=== PATIENT | female | born 1970 | race African-American/Black ===

== ENCOUNTER 2020-04-22 18:46 | Emergency (ER) | payer BC, OTHER, SELFPAY ==
--- NOTE | ~2020-04-22 | XR_ITS ---
EXAMINATION: XR knee RT 3V DATE: 04/22/2020 21:43 INDICATION: Right knee pain TECHNIQUE: Three views of the right knee were obtained. COMPARISON: None. FINDINGS: Alignment is normal. No fracture or osteochondral lesion. There is mild tricompartmental os teoarthritis characterized by tiny marginal osteophytes. There is a large knee joint effusion. Soft t issues are unremarkable. IMPRESSION: 1. Large knee joint effusion without acute osseous abnormality. Reviewed, dictated and finalized at location A. OR GREETING CARD
[2020-04-22 18:48] VITALS: BP 143/78; PULSE 94; RESP 18; TEMP 36.6; O2SAT 98
[2020-04-22 20:39] VITALS: BP 116/70; PULSE 91; RESP 13; TEMP 36.8; O2SAT 100
--- NOTE | 2020-04-22 21:37 | ED.GENADULT ---
HPI - General Adult General Chief complaint: Extremity Injury, Lower Stated complaint: Right knee pain and swelling Time Seen by Provider: 04/22/20 21:31 Source: patient History of Present Illness HPI narrative: Patient is a 49 y/o female complaining of right knee since she fell 2 weeks ago. She describes her pain as aching and rates it as 6/10. She took Aleve and applied ice, but they did not help. She has some knee swelling and some numbness behind her right leg. She states that she was seen at urgent care 1 week ago, had xray which was negative. Related Data Allergies Allergy/AdvReac Type Severity Reaction Status Date / Time No Known Allergies Allergy Verified 04/24/20 09:37 Review of Systems Constitutional: Constitutional: Denies chills, Denies fever(s), Denies headache(s) and Denies weakness Eyes: Eyes: Denies blurry vision ENT: Denies headache(s) and Denies neck pain Cardiovascular: Cardiovascular: Denies chest pain and Denies dyspnea Respiratory: Respiratory: Denies cough and Denies dyspnea Gastrointestinal: Gastrointestinal: Denies abdominal pain, Denies diarrhea, Denies nausea and Denies vomiting Genitourinary: Genitourinary: Denies hematuria and Denies dysuria Musculoskeletal: Musculoskeletal: Reports as per HPI, Denies back pain, Reports arthralgias (right knee pain), Reports joint swelling and Denies neck pain Neurologic: Denies headache(s) and Denies weakness Exam Const: General: no acute distress and well developed Orientation/consciousness: oriented to person, oriented to place, oriented to time and patient oriented x3 HENMT: Head: normocephalic Ears: external ears normal General nose exam: Normal external nose present Eyes: General: appearance normal, both eyes and all related structures Conjunctivae: conjunctivae normal Neck: Neck: normal visual inspection and full ROM Chest: Chest palpation & inspection: normal inspection of the chest and no tenderness Resp: Effort & Inspection: normal respiratory effort Auscultation: clear to auscultation bilaterally Cardio: Rate: regular rate Rhythm: regular rhythm GI: GI Palp: No abdominal tenderness and Yes Soft to palpation Skin: General skin exam: normal color and turgor normal Neuro: General: oriented to person, oriented to place, oriented to time and patient oriented x3 Cognition (Neuro): normal cognition Extrem: General: no pedal edema Right lower extremity: knee Details: tenderness and swelling Psych: Appearance: grossly normal Mental Status: mental status grossly normal Affect: normal affect Course Reevaluation(s) Reevaluation #1: Rechecked. Discussed with patient about xray results. Offered patient arthrocentesis for symptomatic relief, but patient declined. Offered patient immobilizer, but she states that she has one at home and does not need another one. Date: 04/22/20 Time: 22:41 Vital Signs Vital signs: Vital Signs Temperature 36.6 C 04/22/20 18:48 Pulse Rate 94 04/22/20 18:48 Respiratory Rate 18 04/22/20 18:48 Blood Pressure 143/78 H 04/22/20 18:48 Pulse Oximetry 98 04/22/20 18:48 Temperature 36.8 C 04/22/20 20:39 Pulse Rate 78 04/22/20 22:52 Respiratory Rate 16 04/22/20 22:52 Blood Pressure 113/75 04/22/20 22:52 Pulse Oximetry 100 04/22/20 22:52 Medical Decision Making Vital Signs Vital Signs: Vital Signs Temperature 36.6 C 04/22/20 18:48 Pulse Rate 94 04/22/20 18:48 Respiratory Rate 18 04/22/20 18:48 Blood Pressure 143/78 H 04/22/20 18:48 Pulse Oximetry 98 04/22/20 18:48 Temperature 36.8 C 04/22/20 20:39 Pulse Rate 78 04/22/20 22:52 Respiratory Rate 16 04/22/20 22:52 Blood Pressure 113/75 04/22/20 22:52 Pulse Oximetry 100 04/22/20 22:52 Discharge Plan Discharge Clinical Impression: Knee pain, right, Effusion of right knee joint Patient Disposition: Home, Self-Care Condition: Stable Instructions: Knee Pain (ED), Swollen Join
[2020-04-22 22:52] VITALS: BP 113/75; PULSE 78; RESP 16; O2SAT 100
== END 2020-04-22 22:52 | disposition home or self-care (01) ==
PROVIDERS: Emergency Provider Emergency Medicine
DX: M25.561 Pain in right knee (principal); M25.461 Effusion, right knee
CPT/HCPCS: 73562; 99283

== ENCOUNTER 2020-05-12 13:49 | Outpatient (CLI) | payer BC, OTHER, SELFPAY ==
--- NOTE | ~2020-05-12 | MR_ITS ---
EXAMINATION: MR knee RT wo con DATE: 05/12/2020 14:35 INDICATION: Right knee pain and swelling with difficulty walking TECHNIQUE: Magnetic resonance imaging (MRI) of the right knee was performed without intravenous contr ast. Sequences included coronal PD-weighted FSE, coronal PD-weighted FS FSE, sagittal T2-weighted FS E, sagittal PD-weighted FS FSE and axial PD weighted fat saturated FSE. COMPARISON: None. FINDINGS: Medial compartment: Medial meniscus is normal. Articular cartilage is normal. Lateral compartment: There is a longitudinal horizontal tear beginning at the anterior body of the lateral meniscus and ex tending to the anterior horn where there is more amorphous increased signal with irregular surface al yu both the superior and inferior articular surfaces suggesting more complex tear at the anterior ho rn. Deep chondral fissuring without degenerative subchondral changes at the central aspect of the lat eral tibial plateau. Deep chondral ulceration along the lateral margin of the anterior weightbearing lateral femoral condyle and extending a sagittally oriented band the central aspect of the posterior weightbearing lateral femoral condyle, both regions with subtle underlying articular cortical irregul arity. Patellofemoral compartment: Region of deep chondral ulceration at the superolateral aspect of the lateral trochlea with minimal u nderlying increased marrow signal. Shallow chondral fissuring involving less than 50% the cartilage t hickness at the inferior aspect of the lateral patellar facet. Deep chondral fissure without degenera tive subchondral changes at the central aspect of the medial trochlea. Ligaments and tendons: Anterior and posterior cruciate ligaments are normal. The medial collateral ligament and fibular lindsey ateral ligament complex are normal. The extensor mechanism is normal. The visualized medial and later al hamstring tendons as well as the iliotibial band are normal. Fluid: Moderate-sized right knee joint effusion collection primarily in the lateral gutter of the suprapatel lar pouch. No loose osteochondral bodies identified. Mild edema anterior to the patellar tendon and a nterior tibial tubercle without discrete bursal fluid collection. Osseous/other: Bone alignment is normal. No fracture or pathologic marrow replacing process. IMPRESSION: 1. Complex tear at the anterior horn and anterior body of the lateral meniscus. 2. 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 3. Likely reactive moderate sized right knee joint effusion. Reviewed, dictated and finalized at location A. IMPRESSION: 1. Complex tear at the anterior horn and anterior body of the lateral meniscus. 2. 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 3. Likely reactive moderate sized right knee joint effusion.
== END 2020-05-12 13:50 | disposition home or self-care (01) ==
PROVIDERS: Visit Provider Nurse Practitioner Family
DX: S83.271A Complex tear of lateral meniscus, current injury, right knee, initial encounter (principal); X58.XXXA Exposure to other specified factors, initial encounter; M17.11 Unilateral primary osteoarthritis, right knee
CPT/HCPCS: 73721

== ENCOUNTER → 2020-05-17 02:43 | Outpatient (CLI) | payer BC, SELFPAY ==
[2020-05-17 20:22] LABS: SARS-CoV-2 RNA PCR Negative
== END ==
PROVIDERS: Visit Provider Orthopaedic Surgery
DX: Z01.812 Encounter for preprocedural laboratory examination (principal); Z20.822 Contact with and (suspected) exposure to COVID-19
CPT/HCPCS: C9803; U0003; U0005

== ENCOUNTER 2020-05-20 01:26 | Day surgery (SDC) | payer BC, OTHER, SELFPAY ==
[2020-05-16 08:35] VITALS: BMI 31.6
--- NOTE | 2020-05-19 11:17 | WPDANESEPPF ---
Anes - Initial Pre Proc Eval Procedure: Operation Date: 05/20/20 15:00 Proposed Procedures p Right Knee Arthroscopy, Proceed As Indicated - Aneesh Delacruz MD Date/Time: 05/19/20 11:17 Surgeon: Aneesh Delacruz MD Pre Op Diagnosis: Right Medial Meniscus Tear Patient Data Age: 49 Gender: F Height: 1.63 m Weight: 83.5 kg Allergies Allergy/AdvReac Type Severity Reaction Status Date / Time No Known Allergies Allergy Verified 05/16/20 08:31 Home Medications Medication Instructions Recorded Confirmed Type ascorbic acid (vitamin C) 100 mg 100 mg PO DAILY 05/01/20 05/16/20 History tablet cholecalciferol (vitamin D3) 25 25 mcg PO DAILY 05/01/20 05/16/20 History mcg (1,000 unit) capsule gastric enzyme no.3 204.5 1 cap PO BID 05/01/20 05/16/20 History mg-herbal complex no.212 190 mg capsule olive leaf extract 250 mg capsule 250 mg PO BID 05/01/20 05/16/20 History selenium 50 mcg tablet 50 mcg PO DAILY 05/01/20 05/16/20 History thyroid (pork) 15 mg tablet 90 mg PO DAILY 05/01/20 05/16/20 History zinc sulfate 25 mg zinc (110 mg) 25 mg PO DAILY 05/01/20 05/16/20 History tablet Black Seed Oil 1 tab-cap PO DAILY 05/16/20 05/16/20 History Lactobacillus acidophilus 10,000 mmu cells PO DAILY 05/16/20 05/16/20 History [Probiotic] ferrous sulfate [iron] 325 mg PO DAILY 05/16/20 05/16/20 History Patient hx anesthesia problems: none Family hx anesthesia problems: none PMFSH Past Medical History Medical History (Updated 05/15/20 @ 16:07 by JEREMY Nguyen) Effusion of right knee joint Hair loss Hypothyroidism Knee injury Lateral meniscus tear Right knee pain Sleep walking Vision abnormalities Weight gain Family History Family History Unknown Hypertension Diabetes mellitus Heart disease Stokers' cramp Arthritis Other Breast cancer Cerebrovascular accident Leukemia Social History Social History Smoking status: Never smoker Alcohol intake: current Alcohol use details: TWICE/MONTH Substance use: never Substance use type: does not use Living arrangements: with family Gender identity (if verbalized by the patient): Female Spiritual care concerns: No Anes - Eval Final PreProcedure Day of Procedure 05/19/20 11:17 Patient weight: obese Heart: regular rate and rhythm Lungs: clear to auscultation and normal air movement Airway: Mallampati scale class II Neurological: alert and oriented Last oral intake: >/= 8 hours ASA classification: II Emergent: no Anesthetic plan: proceed Anesthesia type and monitoring: general LMA Informed Consent: The patient's anesthetic plan and its attendant risks and benefits were discussed with the patient/family/POA. Questions were solicited and answers provided to the satisfaction of the patient/family/POA.
[2020-05-20] VITALS (9 sets, daily range): BP systolic 93–127; BP diastolic 48–80; PULSE 81–100; RESP 10–18; TEMP 36.9; O2SAT 99–100
--- NOTE | 2020-05-20 07:24 | WPDHPUPDATE1 ---
History and Physical Update Update Date/Time: 05/20/20 07:24 History and Physical has been reviewed, including an updated exam of the patient. There are NO changes in the patient's condition. Risks, benefits, and alternatives have been discussed and questions answered. Patient agrees to proceed with procedure.
[2020-05-20] MEDS: CELECOXIB 200 MG CAPSULE PO (13:31)
[2020-05-20 14:21] LABS: Hematocrit 42.1 % (37.0-47.0); Hemoglobin 14.3 g/dL (12.0-15.0)
[2020-05-20] MEDS: LACTATED RINGERS 1,000 ML 30 ML IV CONT ×2 (14:27→17:07)
--- NOTE | 2020-05-20 14:33 | SUR.PREOP ---
Dr. Delacruz aware that patient reports nausea with acetaminophen and refused 1000mg dose.
--- NOTE | 2020-05-20 15:44 | SUR.PREOP ---
Patient given multiple updates on time delay. Resting comfortably.
[2020-05-20] MEDS: ceFAZolin 2 GM/D5W 50 ML 2 GM/50 ML BAG IVPB (15:56)
[2020-05-20] MEDS: BUPIVACAINE HCL 0.5% PF 30 ML VIAL INFILTRATE (16:02)
--- NOTE | 2020-05-20 17:14 | PM.PROC ---
Procedure Note - Detailed Date of procedure: 05/20/20 Pre-op diagnosis: Right Medial Meniscus Tear Post-op diagnosis: other (RIGHT LATERAL MENISCUS TEAR) Procedure performed: RIGHT KNEE SCOPE WITH PARTIAL LATERAL MENISCECTOMY AND MAJOR SYNOVECTOMY Description of procedure: PATIENT WAS TAKEN TO THE OR. THE KNEE WAS IN ABOUT A 25 DEGREES OF BLOCKED EXTENSION. RIGHT LEG WAS PREPPED AND DRAPED STERILE. TROCARS WERE PLACED IN THE USUAL FASHION. CAMERA WAS INTRODUCED. THERE WAS MINIMAL CHONDROMALACIA TO THE PATELLA FEMORAL JOINT. THERE WAS A LOT OF SYNOVITIS IN ALL COMPARTMENTS. THE MEDIAL COMPARTMENT SHOWED MINIMAL CHONDROMALACIA TO THE MED FEMORAL CONDYLE. A SHAVER WAS USED TO PREFORM A CHONDROPLASTY. THERE WAS NO MEDIAL MENISCUS TEAR IN THE MAIN BODY OR THE ROOT. THE ACL WAS INTACT. THE MAIN BODY OF THE LATERAL MENISCUS WAS TORN IN A COMPLEX NATURE AND WAS EXTRUDED INTO THE LATERAL COMPARTMENT. THERE WAS GRADE 3 CHONDROMALACIA TO THE LATERAL FEMORAL CONDYLE. THE LATERAL MENISCUS UNDERWENT RESECTION OF ABOUT 30%. THE LATERAL FEMORAL CONDYLE UNDERWENT CHONDROPLASTY. A SYNOVECTOMY WAS PREFORMED. THE PATELLO FEMORAL JOINT UNDERWENT CHONDROPLASTY. SYNOVECTOMY WAS PREFORMED IN THE SUPERIOR MEDIAL COMPARTMENT. THE KNEE JOINT WAS IRRIGATED THOROUGHLY TO REMOVAL OF INSTRUMENTATION.THE WOUNDS WERE APPROXIMATED WITH 4.0 NYLON. STERILE DRESSING WAS APPLIED. PATIENT WAS EXTUBATED. Anesthesia: GLMA Surgeon: Aneesh Delacruz MD Estimated blood loss (mL): 5 Complications: No immediate complications Condition: stable Disposition: PACU
[2020-05-20] MEDS: fentaNYL CITRATE INJ (*CRX) 100 MCG/2 ML VIAL 25 MCG IV PUSH ×3 (17:24→17:55)
[2020-05-20] MEDS: oxyCODONE HCL (*CRX) 5 MG TAB IR PO (18:40)
[2020-05-20] MEDS: ONDANSETRON INJ 4 MG/2 ML VIAL IV PUSH (18:55)
--- NOTE | 2020-05-20 19:48 | SUR.PHASEII ---
0: vitals are stable and patient is just waiting for to come back from picking up prescriptions.
== END 2020-05-20 19:38 | disposition home or self-care (01) ==
PROVIDERS: Anesthesiology; Visit Provider Orthopaedic Surgery
PROC: (CPT 29870; principal; 2020-05-20 15:00)
DX: S83.271A Complex tear of lateral meniscus, current injury, right knee, initial encounter (principal); W19.XXXA Unspecified fall, initial encounter; M94.261 Chondromalacia, right knee; M65.861 Other synovitis and tenosynovitis, right lower leg; E03.9 Hypothyroidism, unspecified; E66.9 Obesity, unspecified; Z68.32 Body mass index [BMI] 32.0-32.9, adult
CPT/HCPCS: 29881; 29876; 36415; 85014; 85018; A9270; J0690; J2250; J2405; J3010; J7120

== ENCOUNTER → 2020-05-27 15:01 | Outpatient (CLI) | payer BC, SELFPAY ==
--- NOTE | ~2020-05-27 | MM_ITS ---
EXAMINATION: MM screening sincere BI w anthony HISTORY: Screening mammogram TECHNIQUE: Craniocaudal and mediolateral oblique 3-D tomosynthesis images were obtained and synthetic 2-D images were generated. Bilateral rotated lateral cc views. CAD analysis was submitted and interp reted. COMPARISON: No prior mammogram is available for comparison at this institution. BREAST PARENCHYMAL COMPOSITION: The breasts are heterogeneously dense, which may obscure small masses . FINDINGS: There is no evidence of suspicious mass, calcification, or architectural distortion to sugg est malignancy in either breast. There has been no suspicious interval change. IMPRESSION: 1. No mammographic evidence of malignancy. 2. Recommend routine screening mammography in one year. BI-RADS Category 1: Negative Reviewed, dictated and finalized at location A.
--- NOTE | ~2020-05-27 | US_ITS ---
EXAMINATION: US pelvic complete DATE: 05/27/2020 INDICATION: Right lower quadrant pain TECHNIQUE: Multiple transabdominal sonographic images of the pelvis were obtained. COMPARISON: None. FINDINGS: The uterus measures 8.1 x 4.1 x 4.5 cm. The endometrial complex measures 8 mm. The right ov latrice measures 2.6 x 1.5 x 2.4 cm. The left ovary measures 2.8 x 1.4 x 1.9 cm. There is normal vascular flow in the ovaries. There is no free fluid in the pelvis. IMPRESSION: 1. No sonographic correlate for the patient's symptoms. Reviewed, dictated and finalized at location A.
== END ==
PROVIDERS: Visit Provider Nurse Practitioner
DX: Z12.31 Encounter for screening mammogram for malignant neoplasm of breast (principal); R10.2 Pelvic and perineal pain
CPT/HCPCS: 76856; 77063; 77067